=== PATIENT | female | born 1975 | race Caucasian/White ===

== ENCOUNTER 2021-07-12 01:21 | Emergency (ER) | payer OTHER ==
[~2021-07-12] VITALS: Ht 165.1 cm; Wt 83.9 kg
[2021-07-12 01:45] VITALS: BP 135/71
--- NOTE | 2021-07-12 01:52 | NUR ---
TO LOBBY FOLLOWING TRIAGE
--- NOTE | 2021-07-12 03:02 | NUR ---
PT AMBULATED TO ER BED 8
--- NOTE | 2021-07-12 03:05 | NUR ---
PT. IS A 45 Y/O FEMALE THAT CAME INTO ED WITH C/O OF RIGHT LEG PAIN. PT. STATES THAT THE PAIN STARTED 2 DAYS AGO AND RADIATES TO KNEE. WHEN ASKED TO DESCRIBE PAIN, PT. STATES IT FEELS LIKE A "TEAR." PT. RATES PAIN 10/10 ON THE PAIN SCALE AT THIS TIME. AAOX4. DENIES DIARRHEA/FEVER/N/V. SKIN IS PINK/WARM/DRY; AAOX4 WITH EVEN AND STEADY GAIT; HR EVEN AND REGULAR; PT DENIES ANY FEVER, CP, SOB, OR COUGH AT THIS TIME; VSS; PATIENT SITTING ON CHAIR BESIDE BED; PT STATES "IT HURTS TO MOVE TO THE BED." ER MD MADE AWARE OF PT STATUS. PMH: DENIES ALLERGIES: NKA
--- NOTE | 2021-07-12 03:54 | NUR ---
Dr. Serrano examining patient.
[2021-07-12] MEDS ORDERED: HYDR-5080 PO (04:13)
[2021-07-12] MEDS ORDERED: PRED20TA5 PO (04:13)
[2021-07-12] MEDS ORDERED: HYDROcodone/APAP 5/325 MG 1 TAB TAB PO ONE (04:15)
--- NOTE | 2021-07-12 04:15 | NUR ---
PT. LAYING IN SUPINE POSITION, AWAITING FOR DISPOSITION.
[2021-07-12 04:45] VITALS: BP 135/71
--- NOTE | 2021-07-12 04:45 | NUR ---
Patient discharged with v/s stable. Written and verbal after care instructions given and explained. Patient alert, oriented and verbalized understanding of instructions. Ambulatory with steady gait. All questions addressed prior to discharge. ID band removed. Patient advised to follow up with PMD. Rx of HYDROCODONE/ACETAMINOPHEN AND PREDNISONE given. Patient educated on indication of medication including possible reaction and side effects. Opportunity to ask questions provided and answered.
== END 2021-07-12 04:45 | disposition home or self-care (01) ==
LOC: MED 01:21
DX: M54.5 Low back pain (principal); Z79.899 Other long term (current) drug therapy
CPT/HCPCS: 99283